=== PATIENT | female | born 1985 | race Caucasian/White ===

== ENCOUNTER 2021-01-17 16:28 | Emergency (ER) | payer OTHER, SELFPAY ==
--- NOTE | ~2021-01-17 | XR_ITS ---
EXAMINATION: XR knee LT min 4V DATE: 01/17/2021 17:28 INDICATION: Posterior left knee pain and popping TECHNIQUE: Anteroposterior, 2 oblique and crosstable lateral views of the left knee were obtained COMPARISON: None. FINDINGS: Alignment is normal. No fracture. Joint spaces appear normal on nonweightbearing imaging. No joint e ffusion/layering lipohemarthrosis. Soft tissues are unremarkable. IMPRESSION: 1. Negative left knee radiographs. Reviewed, dictated and finalized at location A.
[2021-01-17 16:39] VITALS: BP 123/81; PULSE 90; RESP 20; TEMP 37.1; O2SAT 99
--- NOTE | 2021-01-17 17:39 | ED.LOWEXIN ---
HPI - Extremity Injury (Lower) General Chief Complaint: Extremity Injury, Lower Stated Complaint: Pain and swelling on left Knee Time Seen by Provider: 01/17/21 17:40 Source: patient and RN notes reviewed Mode of arrival: ambulatory Limitations: no limitations History of Present Illness HPI Narrative: 35 year old female who presents to [facility] with complaints of pain to her left knee for the past 2 weeks. 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 Patient states that she has tried Tylenol and has applied ice to her knee, an worn knee brace with no improvement in her symptoms.Patient sttes that pain is in the posterior apect of her left knee and pain wraps around to inner aspect of knee, Patient states that she feels a popping or clicking sensation in her knee. MD complaint: knee injury (left knee no known injury) Onset (ago): week(s) (2) Type of Injury: other (no known injury) Severity: moderate Severity scale (1-10): 4 Relieving factors: nothing Exacerbating factors: weight bearing Associated symptoms: snap/pop sensation Other symptoms: none Treatments prior to arrival: cold therapy, splint (knee brace) and other (Tylenol) Related Data Allergies Allergy/AdvReac Type Severity Reaction Status Date / Time No Known Allergies Allergy Verified 06/09/19 12:09 Review of Systems Review of Systems: Narrative: CONSTITUTIONAL: Denies fever, chills, or sweats. EYES: Denies visual changes, redness, or discharge. ENT: Denies rhinorrhea, congestion, sore throat, or otalgia. CARDIOVASCULAR: Denies chest pain, palpitations, or edema. RESPIRATORY: Denies cough or dyspnea. GASTROINTESTINAL: Denies abdominal pain, nausea, vomiting, or diarrhea. GENITOURINARY: Denies dysuria or hematuria. SKIN: Denies rash or itching. MUSCULOSKELETAL: Denies back pain,positive for left knee pain which is increased with ambulation, or myalgia. NEUROLOGIC: Denies headache, numbness, or weakness. PSYCHIATRIC: Denies anxiety or depression. All systems reviewed & are unremarkable except as noted in HPI and below PMFSH Past Medical History Medical History (Updated 01/20/21 @ 14:04 by Marialuisa Leroy NP) Asthma Migraine Surgical History Surgical History (Updated 01/20/21 @ 14:04 by Marialuisa Leroy NP) Previous section Family History Family History (Updated 01/20/21 @ 14:03 by Marialuisa Leroy NP) Other No significant family history Social History Social History (Updated 01/20/21 @ 14:03 by Marialuisa Leroy NP) Smoking status: Former smoker Alcohol intake: current Alcohol use details: rare social Substance use: never Gender identity (if verbalized by the patient): Female Comments At time of signature, agree with nursing past medical, surgical, social and family history. There is no relevant family history pertinent to the presenting complaint Exam Narrative: Exam Narrative: GENERAL: Well-appearing, well-nourished, and in no acute distress. HEAD: Normocephalic, atraumatic. EYES: PERRLA and EOMI. ENT: Nares clear, no rhinorrhea or epistaxis. Mucous membranes moist. NECK: Supple.no lymphadenopathy CHEST: Clear to auscultation. No respiratory distress.SAO2 99% on room air HEART: Regular rate and rhythm. No murmur heard. Normal peripheral pulses. ABDOMEN: Soft, nontender, nondistended, normal active bowel sounds. EXTREMITIES: Normal range of motion. No edema.Left knee posterior tenderness on palpation, negative drawer test, no increase pain with inversion or eversion maneuvers,full mobility of left knee, no tingling or numbness to leg or foot has strong pedal and posterior tibial pulses.Reports feel on popping or clicking with ambulation. SKIN: Warm, dry, no rash. NEURO: No focal deficits. Alert and oriented x3. Course Vital Signs Vital signs: Vital Signs Temperature 37.1 C 01/17/21 16:39 Pulse Rate 90 01/17/21 16:39 Respiratory Rate 20 01/17
== END 2021-01-17 18:49 | disposition home or self-care (01) ==
PROVIDERS: Emergency Provider Registered Nurse; PCP Internal Medicine
DX: S86.912A Strain of unspecified muscle(s) and tendon(s) at lower leg level, left leg, initial encounter (principal); X58.XXXA Exposure to other specified factors, initial encounter; J45.909 Unspecified asthma, uncomplicated; Z87.891 Personal history of nicotine dependence
CPT/HCPCS: 73564; 99213; G0463

== ENCOUNTER 2021-02-24 11:54 | Emergency (ER) | payer OTHER, SELFPAY ==
[2021-02-24 12:01] VITALS: BP 116/77; PULSE 110; RESP 16; TEMP 37.1; O2SAT 100
--- NOTE | 2021-02-24 12:14 | ED.URI ---
HPI - URI/Sore Throat General Chief Complaint: Unspecified Stated Complaint: vomitting, Body shaking, chills, low sugar Time Seen by Provider: 02/24/21 12:15 Source: patient and RN notes reviewed Limitations: no limitations History of Present Illness HPI Narrative: 35-year-old female presents to the [facility] with multiple complaints. patient states that she was woken up today by the shakes and checked her blood sugar which she reports was 42, she drank juice and felt nauseated. States that she vomited one time. She also states during this episode that whenever someone touched her it felt like her skin was very prickly and painful. Denies any chest pain or shortness of breath. Denies fevers. Denies abdominal pain. Patient states that when she was years ago she had gestational diabetes and was concerned. Currently note medications. Has not seen a doctor in several years. Related Data Allergies Allergy/AdvReac Type Severity Reaction Status Date / Time No Known Allergies Allergy Verified 02/24/21 12:13 Review of Systems Review of Systems: All systems reviewed & are unremarkable except as noted in HPI and below Constitutional: Constitutional: Reports as per HPI, Reports chills and Denies fever(s) Eyes: Eyes: Reports no additional eye complaints ENT: Reports system reviewed and no additional complaints, except as documented, Denies dizziness and Denies sore throat Cardiovascular: Cardiovascular: Reports no additional cardiovascular complaints, Denies chest pain, Denies rapid heart rate, Denies radiating jaw, neck or arm pain and Denies slow heart rate Respiratory: Respiratory: Reports no additional respiratory complaints, Denies chest congestion, Denies cough, Denies dyspnea and Denies wheezing Gastrointestinal: Gastrointestinal: Reports as per HPI, Denies abdominal pain, Denies diarrhea, Reports nausea and Reports vomiting Genitourinary: Genitourinary: Reports no additional female genitourinary complaints, Denies nocturia, Denies flank pain and Denies urinary incontinence Musculoskeletal: Musculoskeletal: Reports as per HPI, Reports myalgias, Denies arthralgias and Denies joint swelling Integumentary/Breasts: Skin/Breast: Reports system reviewed and no additional complaints, except as docu, Denies pruritus and Denies rash Neurologic: Reports system reviewed and no additional complaints, except as documented, Denies headache(s), Denies focal weakness, Denies numbness and Denies weakness Psychiatric: Psychiatric: Reports no additional psychiatric complaints Endocrine: Endocrine: Reports as per HPI Comments: Low blood sugar Allergic/Immunologic: Allergic/Immunologic: Reports no additional allergic/immunologic complaints PMFSH Past Medical History Medical History Asthma Migraine Surgical History Surgical History Previous section Family History Family History Other No significant family history Social History Social History Smoking status: Former smoker Alcohol intake: current Alcohol use details: rare social Substance use: never Gender identity (if verbalized by the patient): Female Comments At the time of my signature, I reviewed and agree with the nursing past medical, surgical, social, and family history. There is no relevant family history pertinent to the patient complaint. Exam Const: General: healthy appearing, no acute distress and alert Nutritional Appearance: well nourished Orientation/consciousness: patient oriented x3 Limitations: no limitations HENMT: Head: normal to inspection Ears: external ears normal, TM's normal bilaterally and EAC's normal Eyes: Conjunctivae: conjunctivae normal Pupils: Equal, round and reactive pupils present Neck: Neck: normal visual inspec
[2021-02-24 12:19] LABS: Glucose Point of Care 121 mg/dl (65-105)
--- NOTE | 2021-02-24 12:21 | ECG_ITS ---
Measurements Intervals [place] Rate: 105 P: 57 WA: 150 QRS: -15 QRSD: 90 T: 24 QT: 327 QTc: 433 Interpretive Statements SINUS TACHYCARDIA MISSING LEAD V6 INCOMPLETE RIGHT BUNDLE BRANCH BLOCK DELAYED PRECORDIAL R/S TRANSITION LOW QRS VOLTAGE IN PRECORDIAL LEADS BORDERLINE T WAVE ABNORMALITY- ANT/INF LEADS BORDERLINE ECG Electronically Signed On 02-24-2021 20:03:59 CDT by Sin Smith D.O.
== END 2021-02-24 12:35 | disposition home or self-care (01) ==
PROVIDERS: Emergency Provider Nurse Practitioner; PCP Internal Medicine
DX: E16.2 Hypoglycemia, unspecified (principal); R11.0 Nausea; Z87.891 Personal history of nicotine dependence; J45.909 Unspecified asthma, uncomplicated
CPT/HCPCS: 82948; 93005; 99213; G0463

== ENCOUNTER 2021-11-30 12:29 | Emergency (ER) | payer OTHER, SELFPAY ==
--- NOTE | ~2021-11-30 | XR_ITS ---
XR lumbar spine 2-3V DATE: 11/30/2021 12:58 INDICATION: Fall. Back pain. TECHNIQUE: AP, lateral, coned lateral lumbosacral views COMPARISON: None FINDINGS: Incidentally noted are bilateral fallopian tube inserts. There is minimal dextroscoliosis of the lumbar spine. No fracture or bone destruction is evident. The lumbar pedicles are intact. Lumbar and lumbosacral in terspaces are well preserved. The sacroiliac joints are intact. IMPRESSION: No lumbar spine fracture Bilateral fallopian tube inserts Reviewed, dictated and finalized at location A.
[2021-11-30 12:34] VITALS: BP 120/94; PULSE 117; RESP 20; TEMP 37.4; O2SAT 100
--- NOTE | 2021-11-30 12:54 | ED.BACK ---
HPI - Back Pain/Injury General Chief Complaint: Back Pain/Injury Stated Complaint: lower back pain Time Seen by Provider: 11/30/21 12:40 Source: patient Mode of arrival: ambulatory Limitations: no limitations History of Present Illness HPI Narrative: Ms. Marie is a 36-year-old female patient presenting to the clinic today with complaints of low pain after falling down stairs(4 steps) approximately 5 days ago. She reports that the initial pain was in her tailbone however it has now radiated up into her low back. She is also having pain to the left side of her low back. She denies any pain or numbness radiating in her legs. She denies any saddle anesthesia, she denies any loss of bowel or bladder. Related Data Allergies Allergy/AdvReac Type Severity Reaction Status Date / Time No Known Allergies Allergy Verified 11/30/21 12:43 Review of Systems Review of Systems: Pertinent positives per HPI. Patient denies any fever, chills, rash, headache, visual changes, dizziness, cough, runny nose, sore throat, shortness of breath, chest pain, palpitations, nausea, vomiting, diarrhea, constipation, abdominal pain, or any urinary issues. [facility] Past Medical History Medical History Asthma Migraine Surgical History Surgical History Previous section Family History Family History Other No significant family history Social History Social History Smoking status: Former smoker Alcohol intake: current Alcohol use details: rare social Substance use: never Gender identity (if verbalized by the patient): Female Comments At the time of my signature, I reviewed and agree with the nursing past medical, surgical, social, and family history. There is no relevant family history pertinent to the patient complaint. Exam Narrative: General: Well-developed, well nourished, in no apparent distress Head: Normocephalic, atraumatic. Cardio: Regular rate and rhythm, s1 and s2 normal, no murmur appreciated. Resp: Clear to auscultation bilaterally, no rhonchi, rales, wheezing or rubs. Musculoskeletal: No deformity, no bruising or redness, tender palpation over L2-L3 and over the left lower paraspinous musculature, patellar reflexes 2+ bilaterally, negative foot drop, negative straight leg test bilaterally, grossly normal range of motion, muscle strength strong and equal, peripheral pulse strong, no edema, no cyanosis, normal gait and station Course Course Emergency Course: Portions of this record may have been created with voice recognition software. Level of Care: Express Care Visit Vital Signs Vital signs: Vital Signs Temperature 37.4 C 11/30/21 12:34 Pulse Rate 117 H 11/30/21 12:34 Respiratory Rate 20 11/30/21 12:34 Blood Pressure 120/94 H 11/30/21 12:34 Pulse Oximetry 100 11/30/21 12:34 Oxygen Delivery Room Air 11/30/21 12:34 Temperature 37.4 C 11/30/21 12:34 Pulse Rate 117 H 11/30/21 12:34 Respiratory Rate 20 11/30/21 12:34 Blood Pressure 120/94 H 11/30/21 12:34 Pulse Oximetry 100 11/30/21 12:34 Oxygen Delivery Room Air 11/30/21 12:34 Vital signs reviewed MDM - Back Pain/Injury MDM Narrative Medical decision making narrative: At the time of visit patient is resting comfortably on the exam table. Has point tenderness over L2-L3 as well as over the left parous musculature. X-ray was performed and was negative for any fracture of the lumbar sacral spine. I suspect that she has a lumbar strain and supportive measures were discussed. A prescription for naproxen was sent to her pharmacy. She voiced understanding of discharge instruction and agrees treatment plan. Differential Diagnosis Differential diagnosis: Likely lumbar radiculopathy, sciatica, strain of lumbar region, discit
== END 2021-11-30 13:24 | disposition home or self-care (01) ==
PROVIDERS: Emergency Provider Nurse Practitioner Family; PCP Internal Medicine
DX: S39.012A Strain of muscle, fascia and tendon of lower back, initial encounter (principal); W10.9XXA Fall (on) (from) unspecified stairs and steps, initial encounter; J45.909 Unspecified asthma, uncomplicated; Z87.891 Personal history of nicotine dependence
CPT/HCPCS: 72100; 99213; G0463